=== PATIENT | male | born 1990 | race Caucasian/White ===

== ENCOUNTER 2019-08-12 19:27 | Emergency (ER) | payer OTHER ==
[~2019-08-12] VITALS: Ht 195.6 cm; Wt 113.6 kg
--- NOTE | 2019-08-12 19:30 | PHYS DOC ---
Past History Past Medical History: Seizure Past Medical History Hx. TBI General Adult HPI: HPI: ".. I guess I had two seizures today... I have after a Traumatic Brain injury... " Patient is a 28 year old male prisoner who presents with above hx and complaints of 2 tonic-clonic seizures. Patient reportedly did strike head against wall during 1 of the tonic-clonic seizures. First seizure Morning. Then had another one approximately 1500 hrs. Patient reportedly has been taking his antiseizure meds. Patient is a member of [employer] and serving time at [employer]. No recent travel. Notes no history of specific ill contacts. Patient reports that he seizure activity secondary to traumatic brain injury occurred well while serving in the [employer]. Pt. has hx possible dysrhythmia and has had implanted psychodramatist for reported episodes of Bradycardia. Review of Systems: Review of Systems: Constitutional: Denies fever or chills Eyes: Denies change in visual acuity HENT: Denies nasal congestion or sore throat Respiratory: Denies cough or shortness of breath Cardiovascular: Denies chest pain or edema GI: Denies abdominal pain, nausea, vomiting, bloody stools or diarrhea : Denies dysuria Musculoskeletal: Denies back pain or joint pain Integument: Denies rash Neurologic: Denies headache, focal weakness or sensory changes Endocrine: Denies polyuria or polydipsia Lymphatic: Denies swollen glands Psychiatric: Denies depression or anxiety Heart Score: HEART Score for Chest Pain: HEART Score for Chest Pain Response (Comments) Value History Slighlty/Non-Suspicious 0 ECG Normal 0 Age < 45 0 Risk Factors 1 or 2 Risk Factors 1 Troponin < Normal Limit 0 Total 1 Risk Factors: Risk Factors: DM, Current or recent (<one month) smoker, HTN, HLP, family history of CAD, obesity. Risk Scores: Score 0 - 3: 2.5% MACE over next 6 weeks - Discharge Home Score 4 - 6: 20.3% MACE over next 6 weeks - Admit for Clinical Observation Score 7 - 10: 72.7% MACE over next 6 weeks - Early Invasive Strategies Family History: Family History: Noncontributory to presentation Current Medications: Current Meds: See nursing for group home meds Allergies: Allergies: Allergic to penicillin and sulfa both cause rashes Physical Exam: PE: Constitutional: Well developed, well nourished, no acute distress, non-toxic appearance. [] HENT: Normocephalic, atraumatic, bilateral external ears normal, oropharynx moist, no oral exudates, nose normal. [] Eyes: PERRLA, EOMI, conjunctiva normal, no discharge. [] Neck: Normal range of motion, no tenderness, supple, no stridor. [] Cardiovascular:Heart rate regular rhythm, no murmur [] Lungs & Thorax: Bilateral breath sounds equal at apex auscultation [. The] patient does some basilar crackles on right Abdomen: Bowel sounds normal, soft, no tenderness, no masses, no pulsatile masses. [] Skin: Warm, dry, no erythema, no rash. [] Back: No tenderness, no CVA tenderness. [] Extremities: No tenderness, no cyanosis, no clubbing, ROM intact, no edema. [] Neurologic: Alert and oriented X 3, normal motor function, normal sensory function, no focal deficits noted. [] DTRs +2 at patella and brachial. Amatory without problems in spite of restraints Psychologic: Affect normal, judgement normal, mood normal. [] EKG: EKG: My interpretation of EKG shows a sinus rhythm at 73 bpm. Does have prolonged OK interval at 242 un-[id number] block. No findings of acute STEMI of contralateral changes. [] Radiology/Procedures: Radiology/Procedures: [][place] [address] IMAGING REPORT Signed PATIENT: GILBERT WALLIS ACCOUNT: [id number] : 1990 LOCATION: ER AGE: 28 SEX: M EXAM STATUS: REG ER ORD. PHYSICIAN: FRANK CHACON MD REASON: sz, dyspnea PROCEDURE: PORTABLE CHEST 1V Exam: Chest one view INDICATION: Seizure, dyspnea TECHNIQUE: Frontal view of the chest Comparisons: None FINDINGS: The cardiomediastinal silhouette and pulmonary vessels are within normal limits. Patchy airspace disease in the right lung base. No pleural effusion. IMPRESSION: Patchy airspace disease at the right lung base. This is favored to be infectious or inflammatory in etiology. Electronically signed by: Kait Lai MD (08/12/2019 9:21 PM) [id number] DICTATED AND SIGNED BY: KAIT LAI MD DATE: 08/12/192120 CC: FRANK CHACON MD; PCP,NO ~ IMAGING REPORT Signed PATIENT: GILBERT WALLIS ACCOUNT: [id number] : 1990 LOCATION: ER AGE: 28 SEX: M EXAM STATUS: REG ER ORD. PHYSICIAN: FRANK CHACON MD REASON: Seizure, Hx. TBI, [place] during sz PROCEDURE: CT HEAD AND CERVICAL SPINE WO Exam: CT head and cervical spine without contrast INDICATION: Seizure TECHNIQUE: Sequential axial images through the head and cervical spine were obtained without the administration of IV contrast. Comparisons: None FINDINGS: Head: No focal parenchymal lesion or hemorrhage is identified. There is no midline shift or sulcal effacement. No acute vascular territory infarction is identified. Jarquin-white distinction is preserved. The ventricular system is within normal limits without compression hydrocephalus. The basal cisterns are well maintained. The visualized portions of the paranasal sinuses and mastoid air cells are well-pneumatized. No acute fractures. Cervical spine: Straightening of cervical spine which may be positional. Vertebral body heights are well-maintained. Fracture to the cervical spine is not identified. No significant spondylotic change in cervical spine. Visualized paraspinal soft tissues are unremarkable. IMPRESSION: 1. No acute intracranial abnormality. 2. Negative CT C-spine for acute traumatic injury. Exposure: One or more of the following in the visualized dose reduction techniques were utilized for this examination: 1. Automated exposure control 2. Adjustment of the MA and/or KV according to patient size Use of iterative of reconstructive technique Electronically signed by: Kait Lai MD (08/12/2019 9:07 PM) [id number] DICTATED AND SIGNED BY: KAIT LAI MD DATE: 08/12/192106 CC: FRANK CHACON MD; PCP,NO ~ Course & Med Decision Making: Course & Med Decision Making Pertinent Labs and Imaging studies reviewed. (See chart for details) Patient use MDI 2 puffs 4 times a day. Patient to take Zithromax 250 a day. Patient follow-up primary care. Patient return if any concerns. Would have the cardiac implant interrogated. May give insight to the tonic-clonic seizures. Prolactin level pending. Impression: 1. Hx. of Tonic Clonic Seizures 2. Hx. TBI 3. Rt. lower Infiltrate- Most likely Viral 4. Normal CK-? Unlikely finding for Tonic Conic Seizure Hx ( Pseudo Seizure)? [] Dragon Disclaimer: Dragon Disclaimer: This electronic medical record was generated, in whole or in part, using a voice recognition dictation system. Departure Departure: Disposition: HOME/RESIDENCE PRIOR TO ADM Condition: STABLE Scripts Azithromycin (ZITHROMAX) 250 Mg Tablet 250 MG PO DAILY for ANTI-BIOTIC, #5 TAB 0 Refills Prov: FRANK CHACON MD 08/12/19 Lucio Disclaimer This chart was dictated in whole or in part using Voice Recognition software in a busy, high-work load, and often noisy Emergency Department environment. It may contain unintended and wholly unrecognized errors or omissions. FRANK CHACON MD Aug 12, 2019 19:30
[2019-08-12] MEDS ORDERED: IV RINGERS SOLUTION,LACTATED 1,000 ML IV SCH (20:00)
[2019-08-12 20:49] LABS: BASO % 1 % (0-3); EOS % 0 % (0-3); HEMATOCRIT 47.4 % (39.0-53.0); HEMOGLOBIN 16.3 g/dL (13.0-17.5); LYMPH # 1.2 x10^3/uL (1.0-4.8); LYMPH % 21 % (24-48); MEAN CORPUSCULAR HEMOGLOBIN 30 pg (25-35); MEAN CORPUSCULAR HGB CONC 34 g/dL (31-37); MEAN CORPUSCULAR VOLUME 88 fL (79-100); MONO # 0.6 x10^3/uL (0.0-1.1); MONO % 11 % (0-9); NEUT # 3.7 x10^3uL (1.8-7.7); NEUT % 67 % (31-73); PLATELET COUNT 182 x10^3/uL (140-400); RED BLOOD COUNT 5.37 x10^6/uL (4.30-5.70); RED CELL DISTRIBUTION WIDTH 13.1 % (11.5-14.5); WHITE BLOOD COUNT 5.5 x10^3/uL (4.0-11.0)
[2019-08-12 20:58] LABS: BARBITURATES NEG (NEG); BENZODIAZEPINES NEG (NEG); CANNABINOIDS NEG (NEG); COCAINE NEG (NEG); METHADONE NEG (NEG); OPIATES NEG (NEG); PHENCYCLIDINE NEG (NEG)
[2019-08-12 21:00] LABS: CALCIUM 8.7 mg/dL (8.5-10.1); CREATININE 1.2 mg/dL (0.7-1.3); GFR 71.6; POTASSIUM 4.1 mmol/L (3.5-5.1)
[2019-08-12 21:05] LABS: BACTERIA,URINE FEW /HPF (0-FEW); BILIRUBIN,URINE NEG (NEG); CLARITY,URINE CLEAR; COLOR,URINE YELLOW; GLUCOSE,URINE NEG (NEG); NITRITE,URINE NEG (NEG); RBC,URINE 0 /HPF (0-2); UROBILINOGEN,URINE 0.2 mg/dL (0.2 mg/dL); WBC,URINE 0 /HPF (0-4)
[2019-08-12 21:06] LABS: SQUAMOUS EPITHELIAL CELL,UR FEW /LPF
[2019-08-12 21:07] LABS: AMPHETAMINE/METHAMPHETAMINE NEG (NEG)
--- NOTE | 2019-08-12 21:10 | RAD ---
Exam: CT head and cervical spine without contrast INDICATION: Seizure TECHNIQUE: Sequential axial images through the head and cervical spine were obtained without the administration of IV contrast. Comparisons: None FINDINGS: Head: No focal parenchymal lesion or hemorrhage is identified. There is no midline shift or sulcal effacement. No acute vascular territory infarction is identified. Jarquin-white distinction is preserved. The ventricular system is within normal limits without compression hydrocephalus. The basal cisterns are well maintained. The visualized portions of the paranasal sinuses and mastoid air cells are well-pneumatized. No acute fractures. Cervical spine: Straightening of cervical spine which may be positional. Vertebral body heights are well-maintained. Fracture to the cervical spine is not identified. No significant spondylotic change in cervical spine. Visualized paraspinal soft tissues are unremarkable. IMPRESSION: 1. No acute intracranial abnormality. 2. Negative CT C-spine for acute traumatic injury. Exposure: One or more of the following in the visualized dose reduction techniques were utilized for this examination: 1. Automated exposure control 2. Adjustment of the MA and/or KV according to patient size Use of iterative of reconstructive technique Electronically signed by: Kait Barnett MD (08/12/2019 9:07 PM) [id number]
[2019-08-12 21:13] LABS: ALBUMIN 4.3 g/dL (3.4-5.0); MAGNESIUM 2.3 mg/dL (1.8-2.4); TOTAL BILIRUBIN 0.4 mg/dL (0.2-1.0); TOTAL PROTEIN 7.4 g/dL (6.4-8.2)
--- NOTE | 2019-08-12 21:23 | RAD ---
Exam: Chest one view INDICATION: Seizure, dyspnea TECHNIQUE: Frontal view of the chest Comparisons: None FINDINGS: The cardiomediastinal silhouette and pulmonary vessels are within normal limits. Patchy airspace disease in the right lung base. No pleural effusion. IMPRESSION: Patchy airspace disease at the right lung base. This is favored to be infectious or inflammatory in etiology. Electronically signed by: Kait Barnett MD (08/12/2019 9:21 PM) [id number]
[2019-08-12] MEDS ORDERED: AZIT250T PO (21:30)
[2019-08-12] MEDS ORDERED: AZITHROMYCIN 250 MG TABLET. PO ONE (22:00)
[2019-08-12] MEDS ORDERED: ALBUTEROL SULFATE 8GM INHALER. INH ONE (22:00)
[2019-08-12 22:05] VITALS: BP 120/72
[2019-08-12 22:37] LABS: DIRECT BILIRUBIN 0.1 mg/dL (0.0-0.2)
--- NOTE | 2019-08-13 06:46 | EKG ---
[address] [address] Test Date: 2019-08-12 Test Time: 20:18:52 Pat Name: SERGIO WALLIS Department: Room: Gender: M Judicial Registrar: : 1990 Requested By: FRANK CHACON Order Number: [id number] Reading MD: Measurements Intervals [place] Rate: P: GA: QRS: QRSD: T: QT: QTc: Interpretive Statements
== END 2019-08-12 22:05 | disposition home or self-care (01) ==
LOC: EEVIPCON 19:27 → ER 19:27
DX: G40.89 Other seizures (principal); R91.8 Other nonspecific abnormal finding of lung field; Z87.820 Personal history of traumatic brain injury; Z88.0 Allergy status to penicillin
CPT/HCPCS: 36415; 70450; 71045; 72125; 80048; 80076; 80307; 81001; 82550; 82947; 83690; 83735; 83880; 84146; 84443; 84484; 85025; 85379; 85610; 85730; 93005; 94640; 96374; 99285; J0456; J2060; J7120; J7613; 94664

== ENCOUNTER 2020-02-01 22:40 | Emergency (ER) | payer OTHER ==
[~2020-02-01] VITALS: Ht 195.6 cm; Wt 125.0 kg
[~2020-02-01 22:40] MED LIST: AZIT250T PO
--- NOTE | 2020-02-01 23:29 | RAD ---
PORTABLE CHEST 1V History: Reason: chest pain / Spl. Instructions: / History: Comparison: August 12, 2019 Findings: No consolidation or pleural effusion. Normal heart size. No pneumothorax. Impression: 1. No acute cardiopulmonary process. Electronically signed by: Josué Marcum DO (02/01/2020 11:26 PM) [facility]
[2020-02-01] MEDS ORDERED: IV NORMAL SALINE 1,000ML 1,000 ML IV ONE (23:30)
[2020-02-01] MEDS ORDERED: ASPIRIN 325 MG TABLET PO ONE (23:30)
[2020-02-01 23:31] LABS: BASO # 0.1 x10^3/uL (0.0-0.2); BASO % 1 % (0-3); EOS # 0.2 x10^3/uL (0.0-0.7); EOS % 2 % (0-3); HEMATOCRIT 45.1 % (39.0-53.0); HEMOGLOBIN 15.2 g/dL (13.0-17.5); LYMPH # 1.6 x10^3/uL (1.0-4.8); LYMPH % 22 % (24-48); MEAN CORPUSCULAR HEMOGLOBIN 30 pg (25-35); MEAN CORPUSCULAR HGB CONC 34 g/dL (31-37); MEAN CORPUSCULAR VOLUME 89 fL (79-100); MONO # 0.6 x10^3/uL (0.0-1.1); MONO % 9 % (0-9); NEUT # 4.7 x10^3uL (1.8-7.7); NEUT % 66 % (31-73); PLATELET COUNT 191 x10^3/uL (140-400); RED BLOOD COUNT 5.05 x10^6/uL (4.30-5.70); RED CELL DISTRIBUTION WIDTH 12.9 % (11.5-14.5); WHITE BLOOD COUNT 7.2 x10^3/uL (4.0-11.0)
[2020-02-01 23:39] LABS: CALCIUM 8.3 mg/dL (8.5-10.1); CREATININE 0.9 mg/dL (0.7-1.3); GFR 99.1; POTASSIUM 3.6 mmol/L (3.5-5.1)
--- NOTE | 2020-02-01 23:39 | PHYS DOC ---
Past History Past Medical History: Seizure Additional Past Medical Histor: "BRADYCARDIA",HERNIATED DISCS,ENLARGED PROSTATE Past Surgical History: Other Additional Past Surgical Histo: LOOP RECORDER Smoking: Quit Greater Than 1 Year Alcohol Use: None Drug Use: None General Adult EDM: Chief Complaint: CHEST PAIN HPI: HPI: 29-year-old male with past medical history of seizures and prior atrial fibrillation presents via EMS with report of witnessed seizure-like activity x2 episodes that started at approximately 2052 and reportedly lasted approximately 3 minutes and 7 seconds. Patient is a inmate at [place]. patient does have a history of seizures for which he is currently not on any medications. Patient reports complaint of midsternal left chest pain that radiates to his left shoulder and down left arm. Patient also reports headache behind his left eye. Denies any neck pain. Denies fever or chills. Denies nausea or vomiting. Patient was not incontinent nor did he bite his tongue per medical personnel or EMS report. Review of Systems: Review of Systems: Constitutional: Denies fever or chills Eyes: Denies redness or eye pain HENT: Denies nasal congestion or sore throat Respiratory: Denies cough or shortness of breath Cardiovascular: Reports chest pain; denies palpitations GI: Denies abdominal pain, nausea, or vomiting : Denies dysuria or hematuria Musculoskeletal: Denies back pain or neck pain Integument: Denies rash or skin lesions Neurologic: Reports headache; denies focal weakness or sensory changes Complete systems were reviewed and found to be within normal limits, except as documented in this note. Current Medications: Current Meds: Current Medications Medications (Trade) Dose Ordered Sig/[facility] Start Time Stop Time Status Last Admin Dose Admin Aspirin (Nidhi Aspirin) 325 mg 1X ONCE 02/01/20 23:30 02/01/20 23:31 DC Ketorolac Tromethamine (Toradol 15mg Vial) 15 mg 1X ONCE 02/01/20 23:45 02/01/20 23:46 Sodium Chloride 1,000 ml @ 1,000 mls/hr 1X ONCE 02/01/20 23:30 02/02/20 00:29 02/01/20 23:25 1,000 MLS/HR Allergies: Allergies: Allergies Coded Allergies Type Severity Reaction Last Updated Verified Sulfa (Sulfonamide Antibiotics) Allergy Intermediate 02/01/20 Yes clindamycin Allergy Intermediate hives 02/01/20 Yes Physical Exam: PE: Constitutional: Well developed, well nourished, no acute distress, non-toxic appearance HENT: Normocephalic, atraumatic Eyes: PERRL, EOMI, conjunctiva normal, no discharge Neck: Normal range of motion, no tenderness, supple Lungs & Thorax: No respiratory distress, equal chest rise and fall Abdomen: Soft, no tenderness Skin: Warm, dry, no erythema, no rash Back: No tenderness, no CVA tenderness Extremities: No tenderness, ROM intact, no edema Neurologic: Alert and oriented X 3, normal motor function, normal sensory function, no focal deficits noted Psychologic: Affect normal, judgment normal Current Patient Data: Labs: Laboratory Tests Test 02/01/20 22:52 White Blood Count 7.2 x10^3/uL (4.0-11.0) Red Blood Count 5.05 x10^6/uL (4.30-5.70) Hemoglobin 15.2 g/dL (13.0-17.5) Hematocrit 45.1 % (39.0-53.0) Mean Corpuscular Volume 89 fL (79-100) Mean Corpuscular Hemoglobin 30 pg (25-35) Mean Corpuscular Hemoglobin Concent 34 g/dL (31-37) Red Cell Distribution Width 12.9 % (11.5-14.5) Platelet Count 191 x10^3/uL (140-400) Neutrophils (%) (Auto) 66 % (31-73) Lymphocytes (%) (Auto) 22 % (24-48) L Monocytes (%) (Auto) 9 % (0-9) Eosinophils (%) (Auto) 2 % (0-3) Basophils (%) (Auto) 1 % (0-3) Neutrophils # (Auto) 4.7 x10^3uL (1.8-7.7) Lymphocytes # (Auto) 1.6 x10^3/uL (1.0-4.8) Monocytes # (Auto) 0.6 x10^3/uL (0.0-1.1) Eosinophils # (Auto) 0.2 x10^3/uL (0.0-0.7) Basophils # (Auto) 0.1 x10^3/uL (0.0-0.2) EKG: EKG: @2249 NSR at 79bpm with baseline artifact, NO ST elevation, QRS 92ms, QT/QTc 352/405ms Radiology/Procedures: Radiology/Procedures: PROCEDURE: PORTABLE CHEST 1V PORTABLE CHEST 1V History: Reason: chest pain / Spl. Instructions: / History: Comparison: August 12, 2019 Findings: No consolidation or pleural effusion. Normal heart size. No pneumothorax. Impression: 1. No acute cardiopulmonary process. Electronically signed by: Josué Marcum DO (02/01/2020 11:26 PM) [facility] PROCEDURE: CT HEAD WO CONTRAST CT HEAD WO CONTRAST History: Reason: headache, seizure / Spl. Instructions: / History: Comparison: August 12, 2019 Technique: Noncontrast CT imaging was performed of the head. Exposure: One or more of the following individualized dose reduction techniques were utilized for this examination: 1. Automated exposure control 2. Adjustment of the mA and/or kV according to patient size 3. Use of iterative reconstruction technique. Findings: No intracranial hemorrhage. No mass effect. No hydrocephalus. Bilateral frontal parietal periventricular encephalomalacia, unchanged. Potential malformed gyri within this region. Imaged orbits are unremarkable. Imaged paranasal sinuses and mastoid air cells are clear. No acute calvarial fracture. Impression: 1. No acute intracranial abnormality. 2. Unchanged bilateral periventricular encephalomalacia related to prior insult/infarct. 3. Potential malformed bilateral frontal gyri. MRI can further evaluate as clinically warranted if not already performed. Electronically signed by: Josué Marcum DO (02/01/2020 11:55 PM) [facility] Heart Score: HEART Score for Chest Pain: HEART Score for Chest Pain Response (Comments) Value History Slighlty/Non-Suspicious 0 ECG Normal 0 Age < 45 0 Risk Factors 1 or 2 Risk Factors 1 Troponin < Normal Limit 0 Total 1 Risk Factors: Risk Factors: DM, Current or recent (<one month) smoker, HTN, HLP, family history of CAD, obesity. Risk Scores: Score 0 - 3: 2.5% MACE over next 6 weeks - Discharge Home Score 4 - 6: 20.3% MACE over next 6 weeks - Admit for Clinical Observation Score 7 - 10: 72.7% MACE over next 6 weeks - Early Invasive Strategies Course & Med Decision Making: Course & Med Decision Making Pertinent Labs and Imaging studies reviewed. (See chart for details) Patient presents from [facility] with report of witnessed seizure- like activity as well as subsequent chest pain. Patient has a history of seizures for which he is currently not on any medications. Patient also reports history of atrial fibrillation. EKG appears normal sinus with significant baseline artifact. No ST elevation noted. Labs obtained and posted to chart. Troponin within normal limits. PE ruled out per PERC. Chest x-ray stable. Patient neurologically intact. CT head without acute process. WBC, CPK, and lactic acid all within normal limits. Doubt tonic-clonic seizure-like activity. Cannot exclude factitious disorder given incarceration. Patient stable for discharge with outpatient follow-up with PCP. Discussed findings and plan with patient, who acknowledges understanding and agreement. BuildOut Disclaimer: BuildOut Disclaimer: This electronic medical record was generated, in whole or in part, using a voice recognition dictation system. Departure Departure: Impression: Primary Impression: Breakthrough seizure Additional Impressions: Chest pain Qualified Codes: R07.9 - Chest pain, unspecified Headache Qualified Codes: R51.9 - Headache, unspecified Disposition: 01 DC HOME SELF CARE/HOMELESS Condition: STABLE Referrals: PCP,NO (PCP) Patient Instructions: Chest Pain (Nonspecific), [id number], Headache, FAQs, Seizure, Adult, [id number] Additional Instructions: Please follow closely with your doctor and/or neurologist for further evaluation and treatment. PERC Rule for PE PERC Rule for PE Response (Comments) Value Age > 50: No 0 HR > 100: No 0 Sa02 on room air <95%: No 0 Unilateral leg swelling: No 0 Hemoptysis: No 0 Recent surgery or trauma: No 0 Prior PE or DVT: No 0 Hormone use: No 0 Total 0 STANTONSERGIO DO Feb 01, 2020 23:39
[2020-02-01] MEDS ORDERED: KETOROLAC 15 MG/ML VIAL. IVP ONE (23:45)
[2020-02-01 23:53] LABS: ALBUMIN 3.7 g/dL (3.4-5.0); ALBUMIN/GLOBULIN RATIO 1.2 (1.0-1.7); MAGNESIUM 1.9 mg/dL (1.8-2.4); TOTAL BILIRUBIN 0.2 mg/dL (0.2-1.0); TOTAL PROTEIN 6.7 g/dL (6.4-8.2)
[2020-02-01] MEDS ORDERED: prozac (23:56)
[2020-02-01] MEDS ORDERED: NAPR500T8 PO (23:58)
[2020-02-01] MEDS ORDERED: remeron (23:58)
[2020-02-01] MEDS ORDERED: neurontin (23:58)
[2020-02-01] MEDS ORDERED: protonix (23:58)
--- NOTE | 2020-02-01 23:58 | RAD ---
CT HEAD WO CONTRAST History: Reason: headache, seizure / Spl. Instructions: / History: Comparison: August 12, 2019 Technique: Noncontrast CT imaging was performed of the head. Exposure: One or more of the following individualized dose reduction techniques were utilized for this examination: 1. Automated exposure control 2. Adjustment of the mA and/or kV according to patient size 3. Use of iterative reconstruction technique. Findings: No intracranial hemorrhage. No mass effect. No hydrocephalus. Bilateral frontal parietal periventricular encephalomalacia, unchanged. Potential malformed gyri within this region. Imaged orbits are unremarkable. Imaged paranasal sinuses and mastoid air cells are clear. No acute calvarial fracture. Impression: 1. No acute intracranial abnormality. 2. Unchanged bilateral periventricular encephalomalacia related to prior insult/infarct. 3. Potential malformed bilateral frontal gyri. MRI can further evaluate as clinically warranted if not already performed. Electronically signed by: Josué Marcum DO (02/01/2020 11:55 PM) [facility]
[2020-02-02 00:15] VITALS: BP 130/80
--- NOTE | 2020-02-02 01:04 | EKG ---
[address] [address] Test Date: 2020-02-01 Test Time: 22:49:44 Pat Name: GILBERT WALLIS Department: Room: Gender: M Pmo Analyst: KAREN : 1990 Requested By: SERGIO STANTON Order Number: [id number] Reading MD: Measurements Intervals [place] Rate: 79 P: NC: QRS: 0 QRSD: 92 T: 42 QT: 352 QTc: 405 Interpretive Statements ATRIAL FLUTTER LEFTWARD AXIS ABNORMAL ECG RI6.02 No previous ECG available for comparison
== END 2020-02-02 00:25 | disposition home or self-care (01) ==
LOC: ER 22:40 → EEVIPCON 22:40 → ER 02-02 00:25
DX: R56.9 Unspecified convulsions (principal); R07.89 Other chest pain; R51.9 Headache, unspecified; Z87.891 Personal history of nicotine dependence; Z88.2 Allergy status to sulfonamides; Z88.1 Allergy status to other antibiotic agents
CPT/HCPCS: 36415; 70450; 71045; 80053; 82553; 83605; 83690; 83735; 84484; 85025; 85610; 85730; 93005; 96361; 96374; 96375; 99285; J1885; J2060; J7030

== ENCOUNTER 2020-06-24 20:13 | Emergency (ER) | payer OTHER ==
[~2020-06-24] VITALS: Ht 195.6 cm; Wt 113.6 kg
[~2020-06-24 20:13] MED LIST changes: +NAPR500T8 PO; +neurontin; +protonix; +prozac; +remeron
--- NOTE | 2020-06-24 20:22 | PHYS DOC ---
Past History Past Medical History: A-Fib, Anxiety, CAD, Depression, GERD, Seizure, Other Additional Past Medical Histor: "BRADYCARDIA",HERNIATED DISCS,ENLARGED PROSTATE Past Surgical History: Other Additional Past Surgical Histo: embolization of nerves in neck and back Smoking: Quit Greater Than 1 Year Alcohol Use: Sober Drug Use: None General Adult HPI: HPI: "...I ve been having chest pain all day.. and now my Lt leg hurts too,... I got one of those ..implants to monitor my chest.. I ve had Afib in the past..." Patient is a 29 year old male prisoner who presents with above hx and complaints of chest pain. Patient has history of previous A. fib. No recent change in meds. No recent travel. No history of trauma. No history immunosuppression. Up-to-date with vaccinations. Patient follows at [facility]. No recent changes in meds. Has had previous subcu loop monitor placed for evaluation of his history of dysrhythmia. Patient has had previous evaluation in emergency department for his episodes of chest pain. Patient has history of A. fib, bradycardia, herniated disc, enlarged prostate,. Patient states his chest discomfort has been central midsternal. Radiates to left shoulder and down left arm. Patient has had history of previous migraines. No history of neck pain. No history of fever chills. Denies nausea and vomiting. Does have a history of past seizure disorder or seizure-like activity. Patient has not smoked tobacco in over a year. Review of Systems: Review of Systems: Constitutional: Denies fever or chills Eyes: Denies change in visual acuity HENT: Denies nasal congestion or sore throat Respiratory: Denies cough or shortness of breath Cardiovascular: Complains of chest pain for the last 24 hours. GI: Denies abdominal pain, nausea, vomiting, bloody stools or diarrhea : Denies dysuria Musculoskeletal: Denies back pain or joint pain Integument: Denies rash Neurologic: Denies headache, focal weakness or sensory changes Endocrine: Denies polyuria or polydipsia Lymphatic: Denies swollen glands Psychiatric: Denies depression or anxiety Family History: Family History: Noncontributory to presentation. Current Medications: Current Meds: See nursing for home meds Allergies: Allergies: Allergies Coded Allergies Type Severity Reaction Last Updated Verified Sulfa (Sulfonamide Antibiotics) Allergy Intermediate 11/24/20 Yes clindamycin Allergy Intermediate hives 02/01/20 Yes Physical Exam: PE: Constitutional: Well developed, well nourished, no acute distress, non-toxic appearance. [] HENT: Normocephalic, atraumatic, bilateral external ears normal, oropharynx moist, no oral exudates, nose normal. [] Eyes: PERRLA, EOMI, conjunctiva normal, no discharge. Glasses Neck: Normal range of motion, no tenderness, supple, no stridor. [] Cardiovascular:Heart rate regular rhythm, no murmur [] Lungs & Thorax: Bilateral breath sounds clear to auscultation [] few basilar crackles bilaterally. Subcu loop monitor on left Abdomen: Bowel sounds normal, soft, no tenderness, no masses, no pulsatile masses. [] Skin: Warm, dry, no erythema, no rash. [] Back: No tenderness, no CVA tenderness. [] Extremities: No tenderness, no cyanosis, no clubbing, ROM intact, no edema. No cording appreciated Neurologic: Alert and oriented X 3, normal motor function, normal sensory function, no focal deficits noted. [] Psychologic: Affect anxious, judgement normal, mood normal. [] EKG: EKG: My interpretation of EKG 1 #1 at 2020 hrs. shows a sinus rhythm at 83 bpm. Some findings of incomplete right bundle branch block. Some baseline artifact. But no findings acute STEMI of contralateral changes. My interpretation of EKG #2 at 2128 hrs. shows sinus rhythm at 70 bpm. Slightly prolonged OR interval at 240 ms My interpretation EKG #3 at 2316 hrs. shows a sinus rhythm at 62 bpm.. No acute morphology. Does have slightly prolonged OR interval at 240 ms. Sometimes incomplete right bundle branch block. No acute morphology. Radiology/Procedures: Radiology/Procedures: [][address] [address] IMAGING REPORT Signed PATIENT: GILBERT WALLIS ACCOUNT: [id number] : 1990 LOCATION: ER AGE: 29 SEX: M EXAM STATUS: REG ER ORD. PHYSICIAN: FRANK CHACON MD REASON: cp PROCEDURE: CHEST PA & LATERAL Exam: Chest 2 views INDICATION: Chest pain TECHNIQUE: Frontal and lateral views the chest Comparisons: 02/01/2020 FINDINGS: The cardiomediastinal silhouette and pulmonary vessels are within normal limits. Strandy bibasilar airspace disease. No pleural effusion. IMPRESSION: Bibasilar atelectasis. Electronically signed by: Kait Lai MD (06/24/2020 10:11 PM) [facility] DICTATED AND SIGNED BY: KAIT LAI MD DATE: 06/24/202209 CC: FRANK CHACON MD; PCP,NO ~MTH0 0 Heart Score: C/O Chest Pain: Yes HEART Score for Chest Pain: HEART Score for Chest Pain Response (Comments) Value History Slighlty/Non-Suspicious 0 ECG Normal 0 Age < 45 0 Risk Factors 1 or 2 Risk Factors 1 Troponin < Normal Limit 0 Total 1 Risk Factors: Risk Factors: DM, Current or recent (<one month) smoker, HTN, HLP, family history of CAD, obesity. Risk Scores: Score 0 - 3: 2.5% MACE over next 6 weeks - Discharge Home Score 4 - 6: 20.3% MACE over next 6 weeks - Admit for Clinical Observation Score 7 - 10: 72.7% MACE over next 6 weeks - Early Invasive Strategies Course & Med Decision Making: Course & Med Decision Making Pertinent Labs and Imaging studies reviewed. (See chart for details) Patient take half a daily aspirin or 81 mg daily. Follow-up primary care. Follow-up with cardiology. Consider outpatient stress testing. Take Tylenol and ibuprofen for pain. Follow-up a must. Impression: 1. Atypical chest pain 2. History of A. fib-Per patient 3. History of anxiety [] Dragon Disclaimer: Dragon Disclaimer: This electronic medical record was generated, in whole or in part, using a voice recognition dictation system. Departure Departure: Referrals: PCP,GRETCHEN (PCP) Lucio Disclaimer This chart was dictated in whole or in part using Voice Recognition software in a busy, high-work load, and often noisy Emergency Department environment. It may contain unintended and wholly unrecognized errors or omissions. FRANK CHACON MD Jun 24, 2020 20:22
[2020-06-24] MEDS ORDERED: IV RINGERS SOLUTION,LACTATED 1,000 ML IV SCH (21:15)
[2020-06-24] MEDS ORDERED: ASPIRIN CHEWABLE 81 MG TABLET. PO ONE (21:15)
[2020-06-24 21:28] LABS: BASO % 1 % (0-3); EOS % 1 % (0-3); HEMATOCRIT 46.5 % (39.0-53.0); HEMOGLOBIN 15.9 g/dL (13.0-17.5); LYMPH # 1.5 x10^3/uL (1.0-4.8); LYMPH % 17 % (24-48); MEAN CORPUSCULAR HEMOGLOBIN 30 pg (25-35); MEAN CORPUSCULAR HGB CONC 34 g/dL (31-37); MEAN CORPUSCULAR VOLUME 87 fL (79-100); MONO # 0.9 x10^3/uL (0.0-1.1); MONO % 10 % (0-9); NEUT # 6.4 x10^3uL (1.8-7.7); NEUT % 73 % (31-73); PLATELET COUNT 192 x10^3/uL (140-400); RED BLOOD COUNT 5.36 x10^6/uL (4.30-5.70); RED CELL DISTRIBUTION WIDTH 13.3 % (11.5-14.5); WHITE BLOOD COUNT 8.9 x10^3/uL (4.0-11.0)
[2020-06-24 21:35] LABS: CALCIUM 9.1 mg/dL (8.5-10.1); GFR 87.7; POTASSIUM 4.2 mmol/L (3.5-5.1)
[2020-06-24 21:53] LABS: ALBUMIN 4.5 g/dL (3.4-5.0); DIRECT BILIRUBIN 0.1 mg/dL (0.0-0.2); MAGNESIUM 1.9 mg/dL (1.8-2.4); TOTAL BILIRUBIN 0.3 mg/dL (0.2-1.0); TOTAL PROTEIN 7.4 g/dL (6.4-8.2)
--- NOTE | 2020-06-24 22:13 | RAD ---
Exam: Chest 2 views INDICATION: Chest pain TECHNIQUE: Frontal and lateral views the chest Comparisons: 02/01/2020 FINDINGS: The cardiomediastinal silhouette and pulmonary vessels are within normal limits. Strandy bibasilar airspace disease. No pleural effusion. IMPRESSION: Bibasilar atelectasis. Electronically signed by: Kait Barnett MD (06/24/2020 10:11 PM) [facility]
[2020-06-24 22:39] LABS: BARBITURATES NEG (NEG); BENZODIAZEPINES NEG (NEG); CANNABINOIDS NEG (NEG); COCAINE NEG (NEG); METHADONE NEG (NEG); OPIATES NEG (NEG); PHENCYCLIDINE NEG (NEG)
[2020-06-24 22:47] LABS: AMPHETAMINE/METHAMPHETAMINE NEG (NEG)
[2020-06-24 23:01] LABS: BACTERIA,URINE 0 /HPF (0-FEW); BILIRUBIN,URINE NEG (NEG); CLARITY,URINE CLEAR; COLOR,URINE YELLOW; GLUCOSE,URINE NEG (NEG); NITRITE,URINE NEG (NEG); RBC,URINE 0 /HPF (0-2); UROBILINOGEN,URINE 0.2 mg/dL (0.2 mg/dL); WBC,URINE 0 /HPF (0-4)
--- NOTE | 2020-06-24 23:29 | EKG ---
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
--- NOTE | 2020-06-24 23:29 | EKG ---
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
--- NOTE | 2020-06-24 23:30 | EKG ---
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
[2020-06-25 01:12] VITALS: BP 110/58
== END 2020-06-25 01:15 | disposition home or self-care (01) ==
LOC: ER 20:13
DX: R07.89 Other chest pain (principal); I48.91 Unspecified atrial fibrillation; F41.9 Anxiety disorder, unspecified; I25.10 Atherosclerotic heart disease of native coronary artery without angina pectoris; F32.9 Major depressive disorder, single episode, unspecified; K21.9 Gastro-esophageal reflux disease without esophagitis; Z87.891 Personal history of nicotine dependence; Z88.2 Allergy status to sulfonamides; Z88.1 Allergy status to other antibiotic agents
CPT/HCPCS: 36415; 71046; 80048; 80076; 80307; 81001; 82553; 83690; 83735; 83880; 84443; 84484; 85025; 85045; 85379; 85610; 85730; 93005; 96360; 99285; J7120

== ENCOUNTER 2021-02-25 11:28 | Emergency (ER) | payer OTHER ==
[~2021-02-25] VITALS: Ht 195.6 cm; Wt 113.6 kg
[2021-02-25 11:32] VITALS: BP 130/72
[2021-02-25] MEDS ORDERED: IV NORMAL SALINE 1,000ML 1,000 ML IV ONE (12:00)
[2021-02-25 12:07] LABS: BASO # 0.1 x10^3/uL (0.0-0.2); BASO % 1 % (0-3); EOS # 0.1 x10^3/uL (0.0-0.7); EOS % 2 % (0-3); HEMATOCRIT 45.2 % (39.0-53.0); HEMOGLOBIN 15.3 g/dL (13.0-17.5); LYMPH # 1.1 x10^3/uL (1.0-4.8); LYMPH % 21 % (24-48); MEAN CORPUSCULAR HEMOGLOBIN 30 pg (25-35); MEAN CORPUSCULAR HGB CONC 34 g/dL (31-37); MEAN CORPUSCULAR VOLUME 88 fL (79-100); MONO # 0.6 x10^3/uL (0.0-1.1); MONO % 11 % (0-9); NEUT # 3.5 x10^3uL (1.8-7.7); NEUT % 66 % (31-73); PLATELET COUNT 169 x10^3/uL (140-400); RED BLOOD COUNT 5.15 x10^6/uL (4.30-5.70); RED CELL DISTRIBUTION WIDTH 13.7 % (11.5-14.5); WHITE BLOOD COUNT 5.4 x10^3/uL (4.0-11.0)
--- NOTE | 2021-02-25 12:25 | RAD ---
CT scan of the head without contrast 02/25/2021 Clinical History: Altered mental status. Technique: Unenhanced, contiguous, 5 mm axial sections were obtained through the head. One or more of the following individualized dose reduction techniques were utilized for this study: 1. Automated exposure control. 2. Adjustment of the mA and/or kV according to patient size. 3. Use of iterative reconstruction technique. Findings: Comparison study is dated 02/01/2020 . The ventricles are within normal limits in size and configuration. Areas of encephalomalacia are seen within the periventricular white matter of both parietal lobes, unchanged. No acute parenchymal abno rmality is seen. No extra-axial fluid collection is noted. No skull fracture is seen. Impression: No acute intracranial abnormality is seen. Electronically signed by: Josr Quispe MD (02/25/2021 12:23 PM) [id number]
[2021-02-25 12:27] LABS: CALCIUM 8.7 mg/dL (8.5-10.1); CREATININE 0.9 mg/dL (0.7-1.3); GFR 98.4; POTASSIUM 3.8 mmol/L (3.5-5.1)
[2021-02-25 12:27] LABS: AMPHETAMINE/METHAMPHETAMINE NEG (NEG); BARBITURATES NEG (NEG); BENZODIAZEPINES NEG (NEG); CANNABINOIDS NEG (NEG); COCAINE NEG (NEG); METHADONE NEG (NEG); OPIATES NEG (NEG); PHENCYCLIDINE NEG (NEG)
[2021-02-25 12:34] LABS: ALBUMIN/GLOBULIN RATIO 1.4 (1.0-1.7); TOTAL BILIRUBIN 0.4 mg/dL (0.2-1.0); TOTAL PROTEIN 6.9 g/dL (6.4-8.2)
[2021-02-25] MEDS ORDERED: ONDANSETRON PF 4 MG/2 ML VIAL. IVP ONE (12:45)
[2021-02-25] MEDS ORDERED: KETOROLAC 15 MG/ML VIAL. IVP ONE (12:45)
[2021-02-25] MEDS ORDERED: diphenhydrAMINE 50 MG/ML VIAL IVP ONE (12:45)
--- NOTE | 2021-02-25 12:52 | PHYS DOC ---
Past History Past Medical History: A-Fib Additional Past Medical Histor: "BRADYCARDIA",HERNIATED DISCS,ENLARGED PROSTATE (KAJAL BERRY APRN) Past Surgical History: No Surgical History Additional Past Surgical Histo: embolization of nerves in neck and back (KAJAL BERRY APRN) Smoking: Quit Greater Than 1 Year Alcohol Use: None Drug Use: None (KAJAL BERRY APRN) General Adult EDM: Chief Complaint: ALTERED MENTAL STATUS HPI: HPI: Patient is a 30-year-old male [facility] from [facility] for altered mental status. Patient states that he started feeling dizzy when he was working out and then was in his cell and does not remember events leading up to EMS being called. Patient is reporting headache and nausea. Patient does have a history of migra rachel. When EMS arrived blood sugar was 70 and D10 was given. patient's blood sugar in the emergency room was 160. Patient denies taking anything for migraine prior to arrival. Patient has history of migraines, A. fib, anxiety. (KAJAL BERRY APRN) Review of Systems: Review of Systems: ROS At least 10 ROS systems have been reviewed and are negative except as documented in the HPI. General: Negative except as outlined in HPI above. Skin: Negative except as outlined in HPI above. HEENT: Negative except as outlined in HPI above. Neck: Negative except as outlined in HPI above. Respiratory: Negative except as outlined in HPI above.. Cardiovascular: Negative except as outlined in HPI above. Abdomen: Negative except as outlined in HPI above. : Negative except as outlined in HPI above. Back/MSK: Negative except as outlined in HPI above. Neuro: Negative except as outlined in HPI above. Psych: Negative except as outlined in HPI above. (KAJAL BERRY APRN) Current Medications: Current Meds: Current Medications Medications (Trade) Dose Ordered Sig/Omar Start Time Stop Time Status Last Admin Dose Admin Sodium Chloride 1,000 ml @ 1,000 mls/hr 1X ONCE 02/25/21 12:00 02/25/21 12:59 (KAJAL BERRY APRN) Allergies: Allergies: Allergies Coded Allergies Type Severity Reaction Last Updated Verified Sulfa (Sulfonamide Antibiotics) Allergy Intermediate 02/01/20 Yes clindamycin Allergy Intermediate hives 02/01/20 Yes (KAJAL BERRY APRN) Physical Exam: PE: Constitutional: Well developed, well nourished, no acute distress, non-toxic appearance. [] HENT: Normocephalic, atraumatic, bilateral external ears normal, oropharynx moist, no oral exudates, nose normal. [] Eyes: PERRLA, EOMI, conjunctiva normal, no discharge. [] Neck: Normal range of motion, no tenderness, supple, no stridor. [] Cardiovascular:Heart rate regular rhythm, no murmur [] Lungs & Thorax: Bilateral breath sounds clear to auscultation [] Abdomen: Bowel sounds normal, soft, no tenderness, no masses, no pulsatile masses. [] Skin: Warm, dry, no erythema, no rash. [] Back: No tenderness, no CVA tenderness. [] Extremities: No tenderness, no cyanosis, no clubbing, ROM intact, no edema. [] Neurologic: Alert and oriented X 3, normal motor function, normal sensory function, no focal deficits noted. [] Psychologic: Affect normal, judgement normal, mood normal. [] (KAJAL BERRY APRN) Current Patient Data: Labs: Laboratory Tests Test 02/25/21 11:42 02/25/21 11:55 White Blood Count 5.4 x10^3/uL (4.0-11.0) Red Blood Count 5.15 x10^6/uL (4.30-5.70) Hemoglobin 15.3 g/dL (13.0-17.5) Hematocrit 45.2 % (39.0-53.0) Mean Corpuscular Volume 88 fL (79-100) Mean Corpuscular Hemoglobin 30 pg (25-35) Mean Corpuscular Hemoglobin Concent 34 g/dL (31-37) Red Cell Distribution Width 13.7 % (11.5-14.5) Platelet Count 169 x10^3/uL (140-400) Neutrophils (%) (Auto) 66 % (31-73) Lymphocytes (%) (Auto) 21 % (24-48) L Monocytes (%) (Auto) 11 % (0-9) H Eosinophils (%) (Auto) 2 % (0-3) Basophils (%) (Auto) 1 % (0-3) Neutrophils # (Auto) 3.5 x10^3uL (1.8-7.7) Lymphocytes # (Auto) 1.1 x10^3/uL (1.0-4.8) Monocytes # (Auto) 0.6 x10^3/uL (0.0-1.1) Eosinophils # (Auto) 0.1 x10^3/uL (0.0-0.7) Basophils # (Auto) 0.1 x10^3/uL (0.0-0.2) Sodium Level 139 mmol/L (136-145) Potassium Level 3.8 mmol/L (3.5-5.1) Chloride Level 106 mmol/L (98-107) Carbon Dioxide Level 26 mmol/L (21-32) Anion Gap 7 (6-14) Blood Urea Nitrogen 21 mg/dL (8-26) Creatinine 0.9 mg/dL (0.7-1.3) Estimated GFR (Cockcroft-Gault) 98.4 BUN/Creatinine Ratio 23 (6-20) H Glucose Level 85 mg/dL (70-99) Calcium Level 8.7 mg/dL (8.5-10.1) Total Bilirubin 0.4 mg/dL (0.2-1.0) Aspartate Amino Transferase (AST) 20 U/L (15-37) Alanine Aminotransferase (ALT) 64 U/L (16-63) H Alkaline Phosphatase 87 U/L (46-116) Total Protein 6.9 g/dL (6.4-8.2) Albumin 4.0 g/dL (3.4-5.0) Albumin/Globulin Ratio 1.4 (1.0-1.7) Urine Opiates Screen Neg (NEG) Urine Methadone Screen Neg (NEG) Urine Barbiturates Neg (NEG) Urine Phencyclidine Screen Neg (NEG) Urine Amphetamine/Methamphetamine Neg (NEG) Urine Benzodiazepines Screen Neg (NEG) Urine Cocaine Screen Neg (NEG) Urine Cannabinoids Screen Neg (NEG) Urine Ethyl Alcohol Neg (NEG) Vital Signs: Vital Signs Date Time Temp Pulse Resp B/P (MAP) Pulse Ox O2 Delivery O2 Flow Rate FiO2 02/25/21 11:32 79 18 130/72 (91) 98 Room Air (KAJAL BERRY APRN) EKG: EKG: Sinus rhythm. Heart rate [address] Santiago at 1207 [] (KAJAL BERRY APRN) Radiology/Procedures: Radiology/Procedures: []CT scan of the head without contrast 02/25/2021 Clinical History: Altered mental status. Technique: Unenhanced, contiguous, 5 mm axial sections were obtained through the head. One or more of the following individualized dose reduction techniques were utilized for this study: 1. Automated exposure control. 2. Adjustment of the mA and/or kV according to patient size. 3. Use of iterative reconstruction technique. Findings: Comparison study is dated 02/01/2020 . The ventricles are within normal limits in size and configuration. Areas of encephalomalacia are seen within the periventricular white matter of both parietal lobes, unchanged. No acute parenchymal abnormality is seen. No extra- axial fluid collection is noted. No skull fracture is seen. Impression: No acute intracranial abnormality is seen. Electronically signed by: Josr Quispe MD (02/25/2021 12:23 PM) [id number] (KAJAL BERRY APRN) Heart Score: C/O Chest Pain: No Risk Factors: Risk Factors: DM, Current or recent (<one month) smoker, HTN, HLP, family history of CAD, obesity. Risk Scores: Score 0 - 3: 2.5% MACE over next 6 weeks - Discharge Home Score 4 - 6: 20.3% MACE over next 6 weeks - Admit for Clinical Observation Score 7 - 10: 72.7% MACE over next 6 weeks - Early Invasive Strategies (KAJAL BERRY APRN) Course & Med Decision Making: Course & Med Decision Making Pertinent Labs and Imaging studies reviewed. (See chart for details) [] 30-year-old male [facility] from [facility] for [facility] status. Patient states that he started feeling dizzy when he was working out and then was in his cell and does not remember events leading up to EMS being called. Patient is reporting headache and nausea. Patient does have a history of migraines. Work- up in ER consisted of blood work, UDS, EKG, CT head. All lab work was unremarkable. UDS was negative. CT head was unremarkable. Patient's headache and nausea was treated in the ER with Benadryl, Zofran, Toradol. Upon reassessment patient states that his pain has improved after medication was administered. Patient is denying any complaints at this time. Discussed all results with patient. Advised patient he needs to follow-up with his PCP for further management of migraines. Patient is hemodynamically stable upon disposition. (KAJAL BERRY APRN) Dragon Disclaimer: Dragon Disclaimer: This electronic medical record was generated, in whole or in part, using a voice recognition dictation system. (KAJAL BERRY APRN) Attending Co-Sign The patient was seen and interviewed as well as examined at the bedside. The chart was reviewed. The case was discussed. Agree with the plan of care. (FRIEDA SANTIAGO DO) Departure Departure: Impression: Primary Impression: Migraine Qualified Codes: G43.909 - Migraine, unspecified, not intractable, without status migrainosus Disposition: HOME / SELF CARE / HOMELESS Condition: STABLE Referrals: PCP,NO (PCP) Patient Instructions: Migraine Headache, Aadl-ep-Whip Additional Instructions: You were seen in the emergency room for migraine headache. All of your labs were unremarkable. CT of your head was also unremarkable. You were given medication for pain which resolved her symptoms. Please speak with your physician at the present to see if they can prescribe medication to manage your chronic migraines. EMERGENCY DEPARTMENT GENERAL DISCHARGE INSTRUCTIONS Thank you for coming to [facility] (ED) today and trusting us with you care. We trust that you had a positivie experience in our Emergency Department. If you wish to speak to the department management, you may call the director at [phone]. YOUR FOLLOW UP INSTRUCTIONS ARE FOLLOWS: 1. Do you have a private Doctor? If you do not have a private doctor, please ask for a resource list of physicians or clinics that may be able to assist you with follow up care. 2. The Emergency Physician has interpreted your x-rays. The X-Ray specialist will also review them. If there is a change in the findings, you will be notified in 48 hours when at all possible. 3. A lab test or culture has been done, your results will be reviewed and you will be notified if you need a change in treatment. ADDITIONAL INSTRUCTIONS AND INFORMATION: 1. Your care today has been supervised by a physician who is specially trained in emergency care. Many problems require more than one evaluation for a complete diagnosis and treatment. We recommend that you schedule your follow up appointment as recommended to ensure complete treatment of you illness or injury. If you are unable to obtain follow up care and continue to have a problem, or if your condition worsens, we recommend that you return to the ED. 2. We are not able to safely determine your condition over the phone nor are we able to give sound medical advice over the phone. For these safety reasons, if you call for medical advice we will ask you to come to the ED for further evaluation. 3. If you have any questions regarding these discharge instructions please call the ED at [phone]. SAFETY INFORMATION: In the interest of safety, wellness, and injury prevention; we encourage you to wear your sealbelt, if you smoke; quite smoking, and we encourage family to use a protective helmet for bicycling and other sporting events that present an increased risk for head injury. IF YOUR SYMPTOMS WORSEN OR NEW SYMPTOMS DEVELOP, OR YOU HAVE CONCERNS ABOUT YOUR CONDITION; OR IF YOUR CONDITION WORSENS WHILE YOU ARE WAITING FOR YOUR FOLLOW UP APPOINTMENT; EITHER CONTACT YOUR PRIMARY CARE DOCTOR, THE PHYSICIAN WHOSE NAME AND NUMBER YOU WERE GIVEN, OR RETURN TO THE ED IMMEDIATELY. KAJAL BERRY APRN Feb 25, 2021 12:52 FRIEDA SANTIAGO DO Feb 26, 2021 15:55
--- NOTE | 2021-02-25 14:23 | EKG ---
[address] [address] Test Date: 2021-02-25 Test Time: 12:01:07 Pat Name: GILBERT WALLIS Department: Room: Gender: M Try Out Person: MARSHALL : 1990 Requested By: KAJAL BERRY Order Number: [id number] Reading MD: Measurements Intervals [place] Rate: 75 P: 41 [place]: 206 QRS: 19 QRSD: 106 T: 54 QT: 364 QTc: 409 Interpretive Statements SINUS RHYTHM INCOMPLETE RIGHT BUNDLE BRANCH BLOCK OTHERWISE NORMAL ECG RI6.02 No previous ECG available for comparison
== END 2021-02-25 14:30 | disposition home or self-care (01) ==
LOC: ER 11:28
DX: G43.909 Migraine, unspecified, not intractable, without status migrainosus (principal); I48.91 Unspecified atrial fibrillation; F41.9 Anxiety disorder, unspecified; Z88.2 Allergy status to sulfonamides; Z88.1 Allergy status to other antibiotic agents
CPT/HCPCS: 36415; 70450; 80053; 80307; 85025; 93005; 96374; 96375; 99285; J1200; J1885; J2405; J7030